=== PATIENT | female | born 1935 | race Hispanic/Latino ===

== ENCOUNTER 2020-03-09 09:53 | Outpatient (CLI) | payer MEDICARE ==
--- NOTE | 2020-03-09 20:47 | CT ---
CT OF THE BRAIN WITHOUT CONTRAST: Date: 03-09-2020 FINDINGS: The ventricles are normal in size for age and atrophy. There is no intracranial bleeding, mass or sig n of acute stroke. No edema was seen. A small low density area seen just near or posterior to the gen u of the left internal capsule is either a small lacunar infarct or a prominent Virchow-Real space. IMPRESSION: No acute intracranial finding. POS: HOME
== END 2020-03-09 09:54 | disposition home or self-care (01) ==
LOC: BURCT 09:53
PROVIDERS: ATTEND Nurse Practitioner Family
DX: R41.89 Other symptoms and signs involving cognitive functions and awareness (principal)
CPT/HCPCS: 70450